=== PATIENT | male | born 1990 | race Caucasian/White ===

== ENCOUNTER 2021-05-03 10:43 | Inpatient (IN) | payer OTHER ==
[~2021-05-03] VITALS: Ht 180.3 cm; Wt 105.0 kg
[2021-05-03 12:13] LABS: APPEARANCE,URINE CLEAR (CLEAR); GLUCOSE, URINE (UA) NEGATIVE (NEGATIVE); KETONES,URINE 40 mg/dL (NEGATIVE); LEUKOCYTE ESTERASE ,URINE TRACE (NEGATIVE); NITRATE,URINE NEGATIVE (NEGATIVE); OCCULT BLOOD,URINE NEGATIVE (NEGATIVE); PH,URINE 6.5 (5.0-8.0); PROTEIN,URINE TRACE (NEGATIVE)
[2021-05-03 12:16] LABS: BILIRUBIN,URINE PRELIM. POSITIVE (NEGATIVE)
[2021-05-03 12:19] LABS: BACTERIA,URINE None Seen /HPF (None Seen); RBC,URINE 0-2 /HPF (0-2); WBC,URINE 0-2 /HPF (0-5)
[2021-05-03 12:27] LABS: AMPHET/METH SCREEN,URINE POSITIVE (NEGATIVE); BARBITURATE SCREEN, URINE NEGATIVE (NEGATIVE); BENZODIAZEPINES SCREEN,URINE NEGATIVE (NEGATIVE); CANNABINOID SCREEN,URINE NEGATIVE (NEGATIVE); COCAINE SCREEN,URINE NEGATIVE (NEGATIVE); METHADONE SCREEN, URINE NEGATIVE (NEGATIVE); OPIATE SCREEN,URINE POSITIVE (NEGATIVE)
[2021-05-03 12:30] LABS: PHENCYCLIDINE SCREEN,URINE NEGATIVE (NEGATIVE)
[2021-05-03] MEDS ORDERED: DIAZEPAM 5 MG TABLET PO ONE (13:00)
[2021-05-03 13:01] LABS: BASOPHILS % (AUTO) 0.5 % (0.0-2.0); EOSINOPHILS % (AUTO) 1.7 % (1.0-6.0); HEMATOCRIT 43.6 % (41-53); HEMOGLOBIN 14.7 g/dL (13.5-17.5); LYMPHOCYTES # (AUTO) 1.9 K/uL (1.0-4.8); LYMPHOCYTES % (AUTO) 17.2 % (22.0-44.0); MEAN CORPUSCULAR HEMOGLOBIN 28.4 pg (26.0-34.0); MEAN CORPUSCULAR HGB CONC 33.7 G/dL (31.0-37.0); MEAN CORPUSCULAR VOLUME 84 fL (80-100); MONOCYTES # (AUTO) 0.5 K/uL (0.1-1.0); MONOCYTES % (AUTO) 4.8 % (2.0-9.0); NEUTROPHILS # (AUTO) 8.5 K/uL (1.8-7.7); NEUTROPHILS % (AUTO) 75.8 % (40.0-70.0); PLATELET COUNT (AUTO) 389 K/uL (150-450); RED BLOOD CELL COUNT(AUTO) 5.18 MIL/uL (4.50-5.90); RED CELL DISTRIBUTION WIDTH 12.5 % (11.5-14.5)
[2021-05-03 13:12] LABS: ANION GAP 3 mmol/L (8-16); CALCIUM, TOTAL 9.5 mg/dL (8.8-10.5); CARBON DIOXIDE 28 mmol/L (22-29); CHLORIDE 99 mmol/L (98-107); CREATININE 0.74 mg/dL (0.60-1.30); GLOMERULAR FILTR. RATE CALC > 60 mL/min (>60); GLUCOSE,RANDOM 106 mg/dL (70-110); POTASSIUM 4.1 mmol/L (3.5-5.1); SODIUM SERUM 130 mmol/L (136-145); UREA NITROGEN, BLOOD 13 mg/dL (7-18)
[2021-05-03 13:15] LABS: SALICYLATE < 2.8 mg/dL (2.8-20.0)
[2021-05-03 13:16] LABS: ACETAMINOPHEN < 2 mcg/mL (10-30); ALANINE AMINOTRANSFERASE 17 U/L (12-78); ALBUMIN 3.5 g/dL (3.4-5.0); ALKALINE PHOSPHATASE 86 U/L (46-116); ASPARTATE AMINOTRANSFERASE 19 U/L (15-37); BILIRUBIN,TOTAL 1.5 mg/dL (0.1-1.0); TOTAL PROTEIN, SERUM 8.3 g/dL (6.4-8.2)
[2021-05-03] MEDS ORDERED: SODIUM CHLORIDE 0.9% 1,000 ML IV ONE (14:00)
[2021-05-03 16:40] LABS: COVID AG,FIA SOURCE NASOPHARYNGEAL
[2021-05-03 17:17] VITALS: BP 134/66
[2021-05-03] MEDS ORDERED: ALBUTEROL SULFATE 2.5 MG/0.5 ML NEB SOLUTION NEB PRN (18:15)
[2021-05-03] MEDS ORDERED: MAGNESIUM HYDROXIDE SUSPENSION 30 ML UDCUP PO PRN (18:15)
[2021-05-03] MEDS ORDERED: PROMETHAZINE HCL 25 MG TABLET PO PRN (18:15)
[2021-05-03] MEDS ORDERED: BISACODYL 10 MG RECTAL RECTAL SUPPOSITORY PR PRN (18:15)
[2021-05-03] MEDS ORDERED: DICYCLOMINE HCL 10 MG CAPSULE PO PRN (18:15)
[2021-05-03] MEDS ORDERED: IPRATROPIUM BROMIDE 0.5 MG/2.5 ML NEB SOLUTION NEB PRN (18:15)
[2021-05-03] MEDS ORDERED: ONDANSETRON HCL 4 MG/2 ML VIAL IVP PRN (18:15)
[2021-05-03] MEDS ORDERED: MAG HYDROX/AL HYDROX/SIMETH ES 30 ML SUSPENSION UDCUP PO PRN (18:15)
[2021-05-03] MEDS ORDERED: LOPERAMIDE HCL 2 MG/15 ML SUSPENSION UDCUP PO PRN (18:15)
[2021-05-03] MEDS ORDERED: IBUPROFEN 600 MG TABLET PO PRN (18:15)
[2021-05-03] MEDS ORDERED: CloNIDine HCL 0.1 MG TABLET PO PRN (18:15)
[2021-05-03] MEDS ORDERED: ACETAMINOPHEN 325 MG TABLET PO PRN ×2 (18:15)
[2021-05-03] MEDS ORDERED: HydrOXYzine PAMOATE 50 MG CAPSULE PO PRN (18:15)
[2021-05-03] MEDS: SODIUM CHLORIDE 0.45% 1,000 ML IV SCH (18:32)
[2021-05-03 19:46] VITALS: BP 121/64
[2021-05-03] MEDS: DOCUSATE SODIUM 100 MG CAPSULE PO SCH (20:33)
[2021-05-03 21:00] VITALS: BP 110/61
[2021-05-03] MEDS ORDERED: DIAZEPAM 5 MG TABLET PO SCH (21:00)
[2021-05-03] MEDS: HEPARIN SODIUM,PORCINE 5,000 UNITS/ML VIAL SQ SCH (23:43)
[2021-05-03] MEDS: TraZODone HCL 50 MG TABLET PO PRN (23:49)
[2021-05-03] MEDS: LORazepam 1 MG TABLET PO PRN (23:49)
[2021-05-04 04:37] VITALS: BP 108/64
[2021-05-04 07:50] VITALS: BP 123/61
[2021-05-04] MEDS: PANTOPRAZOLE SODIUM 40 MG/VIAL IVP SCH (09:11)
[2021-05-04] MEDS: DOCUSATE SODIUM 100 MG CAPSULE PO SCH ×2 (09:11→20:18)
[2021-05-04] MEDS: HEPARIN SODIUM,PORCINE 5,000 UNITS/ML VIAL SQ SCH ×3 (09:11→23:21)
[2021-05-04] MEDS: SODIUM CHLORIDE 0.45% 1,000 ML IV SCH ×2 (09:49→23:20)
[2021-05-04 12:00] VITALS: BP 108/53
[2021-05-04 16:13] VITALS: BP 107/62
[2021-05-04 19:45] VITALS: BP 113/51
[2021-05-04] MEDS: LORazepam 1 MG TABLET PO PRN (20:18)
[2021-05-04] MEDS: ZOLPIDEM TARTRATE 5 MG TABLET PO PRN (20:18)
[2021-05-04] MEDS: TraZODone HCL 50 MG TABLET PO PRN (23:21)
[2021-05-05 03:57] VITALS: BP 134/85
[2021-05-05 07:34] VITALS: BP 123/72
[2021-05-05] MEDS: PANTOPRAZOLE SODIUM 40 MG/VIAL IVP SCH (09:48)
[2021-05-05] MEDS: DOCUSATE SODIUM 100 MG CAPSULE PO SCH ×2 (09:48→20:17)
[2021-05-05] MEDS: SODIUM CHLORIDE 0.45% 1,000 ML IV SCH ×2 (09:49→23:24)
[2021-05-05] MEDS: BACLOFEN 10 MG TABLET PO PRN (14:24)
[2021-05-05 15:26] VITALS: BP 127/75
[2021-05-05 19:11] VITALS: BP 129/66
[2021-05-05] MEDS: TraZODone HCL 50 MG TABLET PO PRN (20:17)
[2021-05-06 04:42] VITALS: BP 107/59
[2021-05-06 07:59] VITALS: BP 103/48
[2021-05-06] MEDS: PANTOPRAZOLE SODIUM 40 MG/VIAL IVP SCH (08:15)
[2021-05-06] MEDS: DOCUSATE SODIUM 100 MG CAPSULE PO SCH ×2 (08:15→21:00)
[2021-05-06 19:40] VITALS: BP 136/64
[2021-05-06] MEDS: ZOLPIDEM TARTRATE 5 MG TABLET PO PRN (20:23)
[2021-05-06] MEDS: BACLOFEN 10 MG TABLET PO PRN (20:25)
[2021-05-07 05:13] VITALS: BP 104/51
[2021-05-07 07:57] VITALS: BP 124/59
[2021-05-07] MEDS: BACLOFEN 10 MG TABLET PO PRN (08:05)
[2021-05-07] MEDS: DOCUSATE SODIUM 100 MG CAPSULE PO SCH (08:06)
[2021-05-07] MEDS: PANTOPRAZOLE SODIUM 40 MG/VIAL IVP SCH (08:06)
[2021-05-07] MEDS ORDERED: MOM30 PO (13:19)
[2021-05-07] MEDS ORDERED: ACET-2247 PO (13:21)
== END 2021-05-07 13:40 | DRG 897 ==
LOC: EMS 10:51 → 6N 15:15 → 6S 17:01 → UNDODISIN 05-07 13:30
PROVIDERS: ADMIT Hospitalist; ATTEND Hospitalist
DX: F10.129 Alcohol abuse with intoxication, unspecified (principal); E87.1 Hypo-osmolality and hyponatremia; F13.239 Sedative, hypnotic or anxiolytic dependence with withdrawal, unspecified; F11.23 Opioid dependence with withdrawal; Z20.822 Contact with and (suspected) exposure to COVID-19; F19.239 Other psychoactive substance dependence with withdrawal, unspecified; Z72.0 Tobacco use
CPT/HCPCS: 80053; 81001; 85025; 99285; C9113; G0480; G0481; J1644; J7030

== ENCOUNTER 2021-08-17 19:45 | Inpatient (IN) | payer OTHER ==
[~2021-08-17] VITALS: Ht 180.3 cm; Wt 104.1 kg
[~2021-08-17 19:45] MED LIST: ACET-2247 PO; MOM30 PO
[2021-08-17 22:54] LABS: HEMATOCRIT 43.9 % (41-53); HEMOGLOBIN 14.9 g/dL (13.5-17.5); MEAN CORPUSCULAR HGB CONC 33.9 G/dL (31.0-37.0); MEAN CORPUSCULAR VOLUME 86 fL (80-100); PLATELET COUNT (AUTO) 137 K/uL (150-450); RED BLOOD CELL COUNT(AUTO) 5.13 MIL/uL (4.50-5.90); RED CELL DISTRIBUTION WIDTH 12.9 % (11.5-14.5)
[2021-08-17 23:02] LABS: ANION GAP 10 mmol/L (8-16); CALCIUM, TOTAL 8.5 mg/dL (8.8-10.5); CARBON DIOXIDE 24 mmol/L (22-29); CHLORIDE 98 mmol/L (98-107); CREATININE 0.82 mg/dL (0.60-1.30); GLOMERULAR FILTR. RATE CALC > 60 mL/min (>60); GLUCOSE,RANDOM 84 mg/dL (70-110); POTASSIUM 3.8 mmol/L (3.5-5.1); SODIUM SERUM 132 mmol/L (136-145); UREA NITROGEN, BLOOD 12 mg/dL (7-18)
[2021-08-17 23:13] LABS: ALBUMIN 3.2 g/dL (3.4-5.0); ALKALINE PHOSPHATASE 250 U/L (46-116); BILIRUBIN,TOTAL 9.7 mg/dL (0.1-1.0); LIPASE 125 U/L (73-393); TOTAL PROTEIN, SERUM 7.3 g/dL (6.4-8.2)
[2021-08-17] MEDS ORDERED: KETOROLAC TROMETHAMINE 30 MG/ML VIAL IVP ONE (23:30)
[2021-08-17] MEDS ORDERED: SODIUM CHLORIDE 0.9% 1,000 ML IV ONE (23:30)
[2021-08-17 23:40] LABS: BAND NEUTROPHILS % (MANUAL) 0 % (0-5)
[2021-08-17 23:42] LABS: ASPARTATE AMINOTRANSFERASE 3032 U/L (15-37)
[2021-08-17 23:43] LABS: ALANINE AMINOTRANSFERASE 4097 U/L (12-78)
[2021-08-18 00:20] LABS: APPEARANCE,URINE HAZY (CLEAR); GLUCOSE, URINE (UA) NEGATIVE (NEGATIVE); LEUKOCYTE ESTERASE ,URINE NEGATIVE (NEGATIVE); NITRATE,URINE NEGATIVE (NEGATIVE); OCCULT BLOOD,URINE NEGATIVE (NEGATIVE); PROTEIN,URINE 30-70 mg/dL (NEGATIVE); SPECIFIC GRAVITIY, URINE 1.028 (1.003-1.030)
[2021-08-18 00:23] LABS: BILIRUBIN,URINE LARGE (NEGATIVE)
[2021-08-18 00:39] LABS: BACTERIA,URINE None Seen /HPF (None Seen); RBC,URINE 0-2 /HPF (0-2); WBC,URINE 0-2 /HPF (0-5)
[2021-08-18 00:40] LABS: FINE GRANULAR CASTS,URINE 0-2 /LPF (None Seen); MUCUS,URINE Few LPF (None Seen)
[2021-08-18 01:04] LABS: INR 1.3 (0.9-1.1); PROTHROMBIN TIME 14.1 SEC (9.4-11.6)
[2021-08-18 01:04] LABS: AMPHET/METH SCREEN,URINE NEGATIVE (NEGATIVE); BARBITURATE SCREEN, URINE NEGATIVE (NEGATIVE); BENZODIAZEPINES SCREEN,URINE NEGATIVE (NEGATIVE); CANNABINOID SCREEN,URINE NEGATIVE (NEGATIVE); COCAINE SCREEN,URINE NEGATIVE (NEGATIVE); METHADONE SCREEN, URINE NEGATIVE (NEGATIVE); OPIATE SCREEN,URINE NEGATIVE (NEGATIVE); PHENCYCLIDINE SCREEN,URINE NEGATIVE (NEGATIVE)
[2021-08-18 06:16] LABS: ANION GAP 8 mmol/L (8-16); CALCIUM, TOTAL 8.6 mg/dL (8.8-10.5); CARBON DIOXIDE 24 mmol/L (22-29); CHLORIDE 103 mmol/L (98-107); CREATININE 0.76 mg/dL (0.60-1.30); GLOMERULAR FILTR. RATE CALC > 60 mL/min (>60); GLUCOSE,RANDOM 84 mg/dL (70-110); POTASSIUM 4.1 mmol/L (3.5-5.1); SODIUM SERUM 135 mmol/L (136-145); UREA NITROGEN, BLOOD 10 mg/dL (7-18)
[2021-08-18 06:27] LABS: ALANINE AMINOTRANSFERASE 3199 U/L (12-78); ALBUMIN 2.7 g/dL (3.4-5.0); ALKALINE PHOSPHATASE 223 U/L (46-116); TOTAL PROTEIN, SERUM 6.5 g/dL (6.4-8.2)
[2021-08-18 06:54] LABS: ASPARTATE AMINOTRANSFERASE 2499 U/L (15-37)
[2021-08-18 10:29] LABS: COVID AG,FIA SOURCE NASAL SWAB
[2021-08-18 15:29] VITALS: BP 121/60
[2021-08-18 16:00] VITALS: BP 122/98
[2021-08-18] MEDS ORDERED: INFLUENZA VIRUS VACCINE QVS 2021-22 (6MO+)/PF 60 MCG/0.5 ML SYRINGE IM. ONE (16:00)
[2021-08-18] MEDS ORDERED: BISACODYL 10 MG RECTAL RECTAL SUPPOSITORY PR PRN ×2 (17:45→18:45)
[2021-08-18] MEDS ORDERED: IPRATROPIUM BROMIDE 0.5 MG/2.5 ML NEB SOLUTION NEB PRN ×2 (17:45→18:45)
[2021-08-18] MEDS ORDERED: KETOROLAC TROMETHAMINE 15 MG/ML VIAL IVP PRN (17:45)
[2021-08-18] MEDS ORDERED: ZOLPIDEM TARTRATE 5 MG TABLET PO PRN (17:45)
[2021-08-18] MEDS ORDERED: ALBUTEROL SULFATE 2.5 MG/0.5 ML NEB SOLUTION NEB PRN ×2 (17:45→18:45)
[2021-08-18] MEDS ORDERED: MAGNESIUM HYDROXIDE SUSPENSION 30 ML UDCUP PO PRN (17:45)
[2021-08-18] MEDS ORDERED: ONDANSETRON HCL 4 MG/2 ML VIAL IVP PRN ×2 (17:45→18:45)
[2021-08-18] MEDS: MORPHINE SULFATE 2 MG/ML SYRINGE IVP PRN ×2 (19:13→23:13)
[2021-08-18 20:05] VITALS: BP 104/55
[2021-08-18] MEDS ORDERED: DOCUSATE SODIUM 100 MG CAPSULE PO SCH (21:00)
[2021-08-18] MEDS: DOCUSATE SODIUM 100 MG CAPSULE PO SCH (21:00)
[2021-08-18] MEDS: HEPARIN SODIUM,PORCINE 5,000 UNITS/ML VIAL SQ SCH (23:14)
[2021-08-18] MEDS: ZOLPIDEM TARTRATE 5 MG TABLET PO PRN (23:34)
[2021-08-19] VITALS (7 sets, daily range): BP systolic 91–112; BP diastolic 44–58
[2021-08-19] MEDS: HEPARIN SODIUM,PORCINE 5,000 UNITS/ML VIAL SQ SCH ×3 (08:00→23:40)
[2021-08-19] MEDS: DOCUSATE SODIUM 100 MG CAPSULE PO SCH ×2 (08:20→21:47)
[2021-08-19] MEDS: PANTOPRAZOLE SODIUM 40 MG/VIAL IVP SCH (08:21)
[2021-08-19] MEDS: OxyCODONE HCL 5 MG IR TABLET PO PRN ×2 (08:25→21:47)
[2021-08-19] MEDS ORDERED: PANTOPRAZOLE SODIUM 40 MG/VIAL IVP SCH (09:00)
[2021-08-19] MEDS: MORPHINE SULFATE 2 MG/ML SYRINGE IVP PRN ×2 (12:54→18:35)
[2021-08-19 13:10] LABS: MEAN CORPUSCULAR HEMOGLOBIN 29.4 pg (26.0-34.0); MEAN CORPUSCULAR HGB CONC 34.2 G/dL (31.0-37.0); MEAN CORPUSCULAR VOLUME 86 fL (80-100); PLATELET COUNT (AUTO) 150 K/uL (150-450); RED BLOOD CELL COUNT(AUTO) 4.77 MIL/uL (4.50-5.90); RED CELL DISTRIBUTION WIDTH 13.3 % (11.5-14.5)
[2021-08-19] MEDS: SODIUM CHLORIDE 0.9% 1,000 ML IV SCH (13:14)
[2021-08-19 13:20] LABS: ANION GAP 9 mmol/L (8-16); CALCIUM, TOTAL 7.7 mg/dL (8.8-10.5); CARBON DIOXIDE 27 mmol/L (22-29); CHLORIDE 102 mmol/L (98-107); CREATININE 0.89 mg/dL (0.60-1.30); GLOMERULAR FILTR. RATE CALC > 60 mL/min (>60); GLUCOSE,RANDOM 103 mg/dL (70-110); POTASSIUM 4.1 mmol/L (3.5-5.1); SODIUM SERUM 138 mmol/L (136-145); UREA NITROGEN, BLOOD 6 mg/dL (7-18)
[2021-08-19 13:35] LABS: ALANINE AMINOTRANSFERASE 2366 U/L (12-78); ALBUMIN 2.5 g/dL (3.4-5.0); ALKALINE PHOSPHATASE 212 U/L (46-116); BILIRUBIN,TOTAL 7.7 mg/dL (0.1-1.0)
[2021-08-19 13:41] LABS: ASPARTATE AMINOTRANSFERASE 1208 U/L (15-37)
[2021-08-19 14:23] LABS: BAND NEUTROPHILS % (MANUAL) 0 % (0-5)
[2021-08-19 14:27] LABS: BASOPHILS % (MANUAL) 1 % (0-2); EOSINOPHILS % (MANUAL) 1 % (1-6); LYMPHOCYTES % (MANUAL) 24 % (22-44); MONOCYTES % (MANUAL) 9 % (2-9); REACTIVE LYMPHOCYTES 46 % (0-0); SEGMENTED NEUTROPHILS % 19 % (40-70)
[2021-08-19] MEDS: CeFAZolin 2 GM/DEXTROSE 50 ML IV SCH ×2 (19:24→23:40)
[2021-08-19] MEDS: ZOLPIDEM TARTRATE 5 MG TABLET PO PRN (21:48)
[2021-08-20] MEDS: MORPHINE SULFATE 2 MG/ML SYRINGE IVP PRN ×5 (01:09→20:44)
[2021-08-20] MEDS: CeFAZolin 2 GM/DEXTROSE 50 ML IV SCH ×3 (02:21→17:35)
[2021-08-20] MEDS: SODIUM CHLORIDE 0.9% 1,000 ML IV SCH ×2 (02:25→14:35)
[2021-08-20 04:45] VITALS: BP 101/51
[2021-08-20 08:08] LABS: HEMATOCRIT 41.4 % (41-53); MEAN CORPUSCULAR HEMOGLOBIN 29.3 pg (26.0-34.0); MEAN CORPUSCULAR HGB CONC 33.8 G/dL (31.0-37.0); MEAN CORPUSCULAR VOLUME 87 fL (80-100); PLATELET COUNT (AUTO) 149 K/uL (150-450); RED BLOOD CELL COUNT(AUTO) 4.78 MIL/uL (4.50-5.90); RED CELL DISTRIBUTION WIDTH 13.5 % (11.5-14.5)
[2021-08-20 08:13] LABS: BAND NEUTROPHILS % (MANUAL) 0 % (0-5)
[2021-08-20 08:15] LABS: EOSINOPHILS % (MANUAL) 3 % (1-6); LYMPHOCYTES % (MANUAL) 30 % (22-44); MONOCYTES % (MANUAL) 11 % (2-9); REACTIVE LYMPHOCYTES 36 % (0-0); SEGMENTED NEUTROPHILS % 20 % (40-70)
[2021-08-20 08:19] LABS: INR 1.1 (0.9-1.1); PROTHROMBIN TIME 11.8 SEC (9.4-11.6)
[2021-08-20 08:28] LABS: ALANINE AMINOTRANSFERASE 1845 U/L (12-78); ALBUMIN 2.4 g/dL (3.4-5.0); ALKALINE PHOSPHATASE 207 U/L (46-116); ANION GAP 5 mmol/L (8-16); ASPARTATE AMINOTRANSFERASE 744 U/L (15-37); BILIRUBIN,TOTAL 5.6 mg/dL (0.1-1.0); CALCIUM, TOTAL 7.9 mg/dL (8.8-10.5); CARBON DIOXIDE 28 mmol/L (22-29); CHLORIDE 103 mmol/L (98-107); CREATININE 0.71 mg/dL (0.60-1.30); GLOMERULAR FILTR. RATE CALC > 60 mL/min (>60); GLUCOSE,RANDOM 92 mg/dL (70-110); POTASSIUM 4.3 mmol/L (3.5-5.1); SODIUM SERUM 136 mmol/L (136-145); TOTAL PROTEIN, SERUM 7.1 g/dL (6.4-8.2); UREA NITROGEN, BLOOD 5 mg/dL (7-18)
[2021-08-20] MEDS: PANTOPRAZOLE SODIUM 40 MG/VIAL IVP SCH (09:16)
[2021-08-20] MEDS: HEPARIN SODIUM,PORCINE 5,000 UNITS/ML VIAL SQ SCH ×2 (09:16→16:00)
[2021-08-20] MEDS: DOCUSATE SODIUM 100 MG CAPSULE PO SCH ×2 (09:16→20:44)
[2021-08-20 10:17] VITALS: BP 118/60
[2021-08-20 18:30] VITALS: BP 103/63
[2021-08-20] MEDS: ZOLPIDEM TARTRATE 5 MG TABLET PO PRN (20:44)
[2021-08-20 21:07] VITALS: BP 105/56
[2021-08-21] MEDS: CeFAZolin 2 GM/DEXTROSE 50 ML IV SCH ×3 (01:24→17:11)
[2021-08-21] MEDS: SODIUM CHLORIDE 0.9% 1,000 ML IV SCH ×2 (05:14→17:11)
[2021-08-21 05:26] VITALS: BP 100/63
[2021-08-21] MEDS: MORPHINE SULFATE 2 MG/ML SYRINGE IVP PRN ×4 (07:21→20:16)
[2021-08-21 07:25] VITALS: BP 101/43
[2021-08-21 07:28] LABS: BASOPHILS % (AUTO) 0.7 % (0.0-2.0); EOSINOPHILS % (AUTO) 7.6 % (1.0-6.0); HEMATOCRIT 42.5 % (41-53); HEMOGLOBIN 14.4 g/dL (13.5-17.5); LYMPHOCYTES % (AUTO) 46.1 % (22.0-44.0); MEAN CORPUSCULAR HEMOGLOBIN 29.4 pg (26.0-34.0); MEAN CORPUSCULAR VOLUME 87 fL (80-100); MONOCYTES # (AUTO) 0.7 K/uL (0.1-1.0); MONOCYTES % (AUTO) 10.2 % (2.0-9.0); NEUTROPHILS # (AUTO) 2.3 K/uL (1.8-7.7); NEUTROPHILS % (AUTO) 35.4 % (40.0-70.0); PLATELET COUNT (AUTO) 175 K/uL (150-450); RED BLOOD CELL COUNT(AUTO) 4.91 MIL/uL (4.50-5.90); RED CELL DISTRIBUTION WIDTH 13.2 % (11.5-14.5)
[2021-08-21] MEDS: HEPARIN SODIUM,PORCINE 5,000 UNITS/ML VIAL SQ SCH ×4 (07:39→23:45)
[2021-08-21 07:56] LABS: ALANINE AMINOTRANSFERASE 1336 U/L (12-78); ALBUMIN 2.6 g/dL (3.4-5.0); ALKALINE PHOSPHATASE 200 U/L (46-116); ANION GAP 7 mmol/L (8-16); ASPARTATE AMINOTRANSFERASE 338 U/L (15-37); BILIRUBIN,TOTAL 3.5 mg/dL (0.1-1.0); CALCIUM, TOTAL 8.2 mg/dL (8.8-10.5); CARBON DIOXIDE 27 mmol/L (22-29); CHLORIDE 101 mmol/L (98-107); CREATININE 0.71 mg/dL (0.60-1.30); GLOMERULAR FILTR. RATE CALC > 60 mL/min (>60); GLUCOSE,RANDOM 101 mg/dL (70-110); POTASSIUM 4.3 mmol/L (3.5-5.1); SODIUM SERUM 135 mmol/L (136-145); TOTAL PROTEIN, SERUM 7.9 g/dL (6.4-8.2); UREA NITROGEN, BLOOD 8 mg/dL (7-18)
[2021-08-21] MEDS: DOCUSATE SODIUM 100 MG CAPSULE PO SCH ×2 (09:23→20:15)
[2021-08-21] MEDS: PANTOPRAZOLE SODIUM 40 MG/VIAL IVP SCH (09:26)
[2021-08-21 15:22] VITALS: BP 96/55
[2021-08-21] MEDS: MAGNESIUM HYDROXIDE SUSPENSION 30 ML UDCUP PO PRN (18:29)
[2021-08-21 19:45] VITALS: BP 110/61
[2021-08-21] MEDS: ZOLPIDEM TARTRATE 5 MG TABLET PO PRN (20:15)
[2021-08-22] MEDS: CeFAZolin 2 GM/DEXTROSE 50 ML IV SCH ×3 (02:19→17:17)
[2021-08-22] MEDS: MORPHINE SULFATE 2 MG/ML SYRINGE IVP PRN ×5 (02:19→20:49)
[2021-08-22 04:53] VITALS: BP 100/54
[2021-08-22 07:08] LABS: BASOPHILS % (AUTO) 0.6 % (0.0-2.0); EOSINOPHILS % (AUTO) 8.3 % (1.0-6.0); HEMATOCRIT 41.7 % (41-53); HEMOGLOBIN 14.2 g/dL (13.5-17.5); LYMPHOCYTES # (AUTO) 3.3 K/uL (1.0-4.8); LYMPHOCYTES % (AUTO) 41.9 % (22.0-44.0); MEAN CORPUSCULAR HEMOGLOBIN 29.3 pg (26.0-34.0); MEAN CORPUSCULAR HGB CONC 33.9 G/dL (31.0-37.0); MEAN CORPUSCULAR VOLUME 86 fL (80-100); MONOCYTES # (AUTO) 0.8 K/uL (0.1-1.0); MONOCYTES % (AUTO) 9.6 % (2.0-9.0); NEUTROPHILS # (AUTO) 3.1 K/uL (1.8-7.7); NEUTROPHILS % (AUTO) 39.6 % (40.0-70.0); PLATELET COUNT (AUTO) 213 K/uL (150-450); RED BLOOD CELL COUNT(AUTO) 4.84 MIL/uL (4.50-5.90); RED CELL DISTRIBUTION WIDTH 13.6 % (11.5-14.5)
[2021-08-22 07:43] LABS: ALANINE AMINOTRANSFERASE 896 U/L (12-78); ALBUMIN 2.6 g/dL (3.4-5.0); ALKALINE PHOSPHATASE 176 U/L (46-116); ANION GAP 7 mmol/L (8-16); ASPARTATE AMINOTRANSFERASE 163 U/L (15-37); BILIRUBIN,TOTAL 2.6 mg/dL (0.1-1.0); CALCIUM, TOTAL 8.5 mg/dL (8.8-10.5); CARBON DIOXIDE 27 mmol/L (22-29); CHLORIDE 102 mmol/L (98-107); CREATININE 0.69 mg/dL (0.60-1.30); GLOMERULAR FILTR. RATE CALC > 60 mL/min (>60); GLUCOSE,RANDOM 95 mg/dL (70-110); POTASSIUM 4.3 mmol/L (3.5-5.1); SODIUM SERUM 136 mmol/L (136-145); TOTAL PROTEIN, SERUM 7.8 g/dL (6.4-8.2); UREA NITROGEN, BLOOD 10 mg/dL (7-18)
[2021-08-22 07:44] VITALS: BP 107/54
[2021-08-22] MEDS: HEPARIN SODIUM,PORCINE 5,000 UNITS/ML VIAL SQ SCH ×2 (08:00→15:38)
[2021-08-22] MEDS: PANTOPRAZOLE SODIUM 40 MG/VIAL IVP SCH (09:52)
[2021-08-22] MEDS: SODIUM CHLORIDE 0.9% 1,000 ML IV SCH ×2 (09:52→20:50)
[2021-08-22] MEDS: DOCUSATE SODIUM 100 MG CAPSULE PO SCH ×2 (09:52→20:48)
[2021-08-22 15:54] VITALS: BP 101/53
[2021-08-22 19:33] VITALS: BP 114/54
[2021-08-22] MEDS: ZOLPIDEM TARTRATE 5 MG TABLET PO PRN (20:48)
[2021-08-23] MEDS: CeFAZolin 2 GM/DEXTROSE 50 ML IV SCH ×3 (01:53→18:06)
[2021-08-23 05:11] VITALS: BP 101/60
[2021-08-23 07:00] LABS: ALANINE AMINOTRANSFERASE 670 U/L (12-78); ALKALINE PHOSPHATASE 164 U/L (46-116); ANION GAP 9 mmol/L (8-16); ASPARTATE AMINOTRANSFERASE 109 U/L (15-37); BILIRUBIN,TOTAL 2.2 mg/dL (0.1-1.0); CALCIUM, TOTAL 8.4 mg/dL (8.8-10.5); CARBON DIOXIDE 27 mmol/L (22-29); CHLORIDE 102 mmol/L (98-107); GLOMERULAR FILTR. RATE CALC > 60 mL/min (>60); GLUCOSE,RANDOM 95 mg/dL (70-110); POTASSIUM 4.3 mmol/L (3.5-5.1); SODIUM SERUM 138 mmol/L (136-145); TOTAL PROTEIN, SERUM 7.9 g/dL (6.4-8.2); UREA NITROGEN, BLOOD 12 mg/dL (7-18)
[2021-08-23] MEDS: HEPARIN SODIUM,PORCINE 5,000 UNITS/ML VIAL SQ SCH ×3 (08:00→15:33)
[2021-08-23 08:33] VITALS: BP 118/62
[2021-08-23 09:17] LABS: BASOPHILS % (AUTO) 0.6 % (0.0-2.0); EOSINOPHILS % (AUTO) 7.2 % (1.0-6.0); HEMATOCRIT 43.3 % (41-53); HEMOGLOBIN 14.6 g/dL (13.5-17.5); LYMPHOCYTES % (AUTO) 37.3 % (22.0-44.0); MEAN CORPUSCULAR HEMOGLOBIN 29.2 pg (26.0-34.0); MEAN CORPUSCULAR HGB CONC 33.7 G/dL (31.0-37.0); MEAN CORPUSCULAR VOLUME 87 fL (80-100); MONOCYTES # (AUTO) 0.6 K/uL (0.1-1.0); MONOCYTES % (AUTO) 7.4 % (2.0-9.0); NEUTROPHILS # (AUTO) 3.8 K/uL (1.8-7.7); NEUTROPHILS % (AUTO) 47.5 % (40.0-70.0); PLATELET COUNT (AUTO) 250 K/uL (150-450); RED BLOOD CELL COUNT(AUTO) 5.01 MIL/uL (4.50-5.90); RED CELL DISTRIBUTION WIDTH 13.8 % (11.5-14.5)
[2021-08-23] MEDS: MORPHINE SULFATE 2 MG/ML SYRINGE IVP PRN ×4 (09:19→20:27)
[2021-08-23] MEDS: PANTOPRAZOLE SODIUM 40 MG/VIAL IVP SCH (09:19)
[2021-08-23] MEDS: DOCUSATE SODIUM 100 MG CAPSULE PO SCH ×2 (09:19→20:27)
[2021-08-23] MEDS: SODIUM CHLORIDE 0.9% 1,000 ML IV SCH (09:20)
[2021-08-23] MEDS: MAGNESIUM HYDROXIDE SUSPENSION 30 ML UDCUP PO PRN (13:21)
[2021-08-23 14:06] LABS: HEPATITIS C AB (EIA) >11.0 s/co ratio (0.0-0.9); HEPATITIS C RT-PCR,QNT 632000 IU/mL
[2021-08-23 14:30] LABS: EOSINOPHILS % (MANUAL) 1 % (1-6); LYMPHOCYTES % (MANUAL) 31 % (22-44); METAMYELOCYTES % 7 % (0-0); MONOCYTES % (MANUAL) 6 % (2-9); MYELOCYTES % 4 % (0-0); REACTIVE LYMPHOCYTES 13 % (0-0); SEGMENTED NEUTROPHILS % 38 % (40-70)
[2021-08-23 14:34] LABS: PATHOLOGY REVIEW, DIFF YES
[2021-08-23 18:17] VITALS: BP 139/76
[2021-08-23 19:20] VITALS: BP 104/57
[2021-08-23] MEDS: ZOLPIDEM TARTRATE 5 MG TABLET PO PRN (20:27)
[2021-08-24] MEDS: SODIUM CHLORIDE 0.9% 1,000 ML IV SCH (00:57)
[2021-08-24] MEDS: CeFAZolin 2 GM/DEXTROSE 50 ML IV SCH (02:29)
[2021-08-24 04:50] VITALS: BP 98/48
[2021-08-24 06:46] LABS: BASOPHILS % (AUTO) 0.5 % (0.0-2.0); HEMATOCRIT 44.2 % (41-53); HEMOGLOBIN 14.9 g/dL (13.5-17.5); LYMPHOCYTES # (AUTO) 4.1 K/uL (1.0-4.8); LYMPHOCYTES % (AUTO) 38.2 % (22.0-44.0); MEAN CORPUSCULAR HEMOGLOBIN 29.3 pg (26.0-34.0); MEAN CORPUSCULAR HGB CONC 33.8 G/dL (31.0-37.0); MEAN CORPUSCULAR VOLUME 87 fL (80-100); MONOCYTES # (AUTO) 0.9 K/uL (0.1-1.0); MONOCYTES % (AUTO) 8.8 % (2.0-9.0); NEUTROPHILS # (AUTO) 4.8 K/uL (1.8-7.7); NEUTROPHILS % (AUTO) 44.5 % (40.0-70.0); PLATELET COUNT (AUTO) 306 K/uL (150-450); RED BLOOD CELL COUNT(AUTO) 5.09 MIL/uL (4.50-5.90); RED CELL DISTRIBUTION WIDTH 13.2 % (11.5-14.5)
[2021-08-24 07:08] LABS: ALANINE AMINOTRANSFERASE 456 U/L (12-78); ALKALINE PHOSPHATASE 153 U/L (46-116); ANION GAP 9 mmol/L (8-16); ASPARTATE AMINOTRANSFERASE 86 U/L (15-37); CALCIUM, TOTAL 8.8 mg/dL (8.8-10.5); CARBON DIOXIDE 26 mmol/L (22-29); CHLORIDE 101 mmol/L (98-107); GLOMERULAR FILTR. RATE CALC > 60 mL/min (>60); GLUCOSE,RANDOM 96 mg/dL (70-110); POTASSIUM 4.5 mmol/L (3.5-5.1); SODIUM SERUM 136 mmol/L (136-145); TOTAL PROTEIN, SERUM 8.2 g/dL (6.4-8.2); UREA NITROGEN, BLOOD 13 mg/dL (7-18)
[2021-08-24] MEDS: HEPARIN SODIUM,PORCINE 5,000 UNITS/ML VIAL SQ SCH ×2 (08:00)
[2021-08-24 09:17] VITALS: BP 107/65
[2021-08-24] MEDS: OxyCODONE HCL 5 MG IR TABLET PO PRN (11:21)
== END 2021-08-24 12:15 | DRG 442 ==
LOC: EMS 19:58 → 6S 08-18 13:26
PROVIDERS: ADMIT Hospitalist; ATTEND Hospitalist
DX: B17.9 Acute viral hepatitis, unspecified (principal); L02.413 Cutaneous abscess of right upper limb; L03.113 Cellulitis of right upper limb; J45.909 Unspecified asthma, uncomplicated; F17.210 Nicotine dependence, cigarettes, uncomplicated; Z20.822 Contact with and (suspected) exposure to COVID-19; K82.8 Other specified diseases of gallbladder; Z90.49 Acquired absence of other specified parts of digestive tract
CPT/HCPCS: 74177; 76705; 80053; 80074; 81001; 81003; 83516; 83690; 85025; 85610; 85730; 86038; 86225; 87522; 99285; C9113; G0481; J0690; J1644; J1885; J2270; J7030

== ENCOUNTER 2023-01-26 16:59 | Emergency (ER) | payer MEDICAID, OTHER ==
[~2023-01-26 16:59] MED LIST changes: -ACET-2247 PO; +MAGN-169 PO; -MOM30 PO
== END 2023-01-26 18:52 | disposition left against medical advice (07) ==
LOC: EMS 17:00
DX: Z53.21 Procedure and treatment not carried out due to patient leaving prior to being seen by health care provider (principal)

== ENCOUNTER 2023-02-17 19:11 | Emergency (ER) | payer MEDICAID ==
[~2023-02-17] VITALS: Ht 180.3 cm; Wt 91.0 kg
[2023-02-17 19:14] VITALS: BP 141/76; PULSE 92; RESP 17
== END 2023-02-17 21:48 | disposition home or self-care (01) ==
LOC: EMS 19:11
DX: S60.221A Contusion of right hand, initial encounter (principal); F17.210 Nicotine dependence, cigarettes, uncomplicated; X58.XXXA Exposure to other specified factors, initial encounter; Y93.89 Activity, other specified; Y92.89 Other specified places as the place of occurrence of the external cause; Y99.8 Other external cause status
CPT/HCPCS: 99283